=== PATIENT | male | born 1940 | race Caucasian/White ===

== ENCOUNTER 2018-04-03 09:17 | Day surgery (SDC) | payer MEDICARE, OTHER ==
[~2018-04-03 09:17] MED LIST: PROPOFOL INJ 200 MG/20 ML VIAL IV ONE
--- NOTE | 2018-04-03 10:04 | EKG REPORT ---
SEVERITY:- ABNORMAL ECG - SINUS RHYTHM RIGHT BUNDLE BRANCH BLOCK LEFT VENTRICULAR HYPERTROPHY INFERIOR INFARCT, OLD : Confirmed by: Emma Alfred MD 03-Apr-2018 10:04:15
[2018-04-03] MEDS ORDERED: PROPOFOL INJ 200 MG/20 ML VIAL IV ONE (10:16)
--- NOTE | 2018-04-03 10:50 | Operative Report ---
Operative Report DATE OF SURGERY: 04/03/18 Operative Report: The risks, benefits and alternatives of the procedure including the risk of bleeding, perforation requiring surgery are explained to the patient in detail and informed consent is obtained. Patient is brought back to the endoscopy suite and placed in the left, lateral decubital position. Timeout was called. Propofol medication is administered. Rectal examination is done which did not reveal any masses, tears or fissures. An Olympus videoscope was inserted to the patient's rectum. The scope was then carefully advanced all the way to the cecum. The cecum was identified by the usual anatomical landmarks including the ileocecal valve as well as the appendiceal office. Photodocumentation is obtained. The scope was then sequentially pulled back via the various segments of the colon including the ascending colon, hepatic flexure, transverse colon, splenic flexure, descending colon and finally in to the rectosigmoid portions of the colon. Retroflexion maneuvers performed. PREOPERATIVE DIAGNOSIS: Personal history of polyp POSTOPERATIVE DIAGNOSIS: Right-sided colon inflammation status post biopsy. Redundant colon. Diverticulosis. Internal hemorrhoids OPERATION: Colonoscopy with biopsy SURGEON: HUGH HEIN ANESTHESIA: LMAC TISSUE REMOVED OR ALTERED: As noted above. COMPLICATIONS: None. ESTIMATED BLOOD LOSS: None. INTRAOPERATIVE FINDINGS: As noted above. PROCEDURE: Patient tolerated the procedure well. No immediate postprocedure complications are noted. Patient discharged in good condition. Discharge date 04/03/2018. Discharge diet: Regular. Discharge activity: Regular. 2-3-week follow-up to discuss findings. Patient is instructed call the office or proceed to the emergency room should there be any further problems or questions. Wait on the pathology.
[2018-04-03 11:08] VITALS: BP 166/82
== END 2018-04-03 11:13 | disposition home or self-care (01) ==
LOC: END 09:17
PROVIDERS: ATTEND Internal Medicine Gastroenterology
DX: Z12.11 Encounter for screening for malignant neoplasm of colon (principal); K57.30 Diverticulosis of large intestine without perforation or abscess without bleeding; K64.8 Other hemorrhoids; K52.9 Noninfective gastroenteritis and colitis, unspecified; Z86.010 Personal history of colon polyps; E07.9 Disorder of thyroid, unspecified; E11.9 Type 2 diabetes mellitus without complications; I10 Essential (primary) hypertension; I25.10 Atherosclerotic heart disease of native coronary artery without angina pectoris; J44.9 Chronic obstructive pulmonary disease, unspecified; E11.40 Type 2 diabetes mellitus with diabetic neuropathy, unspecified; E78.00 Pure hypercholesterolemia, unspecified; Z86.73 Personal history of transient ischemic attack (TIA), and cerebral infarction without residual deficits; Z88.5 Allergy status to narcotic agent; I25.2 Old myocardial infarction; Z79.02 Long term (current) use of antithrombotics/antiplatelets; Z79.82 Long term (current) use of aspirin; Z79.84 Long term (current) use of oral hypoglycemic drugs; Z79.51 Long term (current) use of inhaled steroids; Z79.4 Long term (current) use of insulin
CPT/HCPCS: 45380; 82962; 88305 ×2; 93005; 93010; J2704; 811

== ENCOUNTER → 2020-05-29 | Outpatient (CLI) | payer MEDICARE, OTHER ==
--- NOTE | 2020-05-29 13:55 | RADIOLOGY REPORT (SQ) ---
EXAM DESCRIPTION: CAROTID DOPPLER IMAGES COMPLETED DATE/TIME: 05/29/2020 1:10 pm REASON FOR STUDY: DIZZINESS R42 DIZZINESS AND GIDDINESS S16.1XXA STRAIN OF MUSCLE, FASCIA AND TEND ON AT NECK LEVEL, COMPARISON: None. TECHNIQUE: Grayscale ultrasound, Doppler velocity and spectra, and color Doppler images acquired of the extra-cranial carotid and vertebral arteries. Images stored on PACS. LIMITATIONS: None. FINDINGS: RIGHT CAROTID CCA Velocities: Within normal limits. ICA Velocities Peak systolic 146 cm/s. End diastolic 28 cm/s. Proximal ICA/CCA peak systolic ratio 2.08. Plaque is present in the carotid bulb and proximal ICA. 50 to 69% stenosis of the ICA. LEFT CAROTID CCA Velocities: Within normal limits. ICA Velocities Peak systolic 142 cm/s. End diastolic 38 cm/s. Proximal ICA/CCA peak systolic ratio 0.94. Plaque is present in the carotid bulb and proximal ICA. Less than 50% stenosis. VERTEBRAL ARTERIES: Antegrade flow. Normal waveforms. SUBCLAVIAN ARTERIES: No finding. OTHER: No other significant finding. IMPRESSION: Atherosclerotic changes with 50 to 69% stenosis of the proximal right ICA. COMMENT: Quality ID #[id number]: Velocity criteria are extrapolated from the diameter data as defined by t he Society of Radiologists in Ultrasound Consensus Conference. Radiology 2003: 229; 340-346. TECHNICAL DOCUMENTATION: JOB ID: [id number] 2010 [employer]- All Rights Reserved Reading location - IP/workstation name: [email or web address]
== END ==
LOC: SP 11:01
PROVIDERS: ATTEND Physician Assistant
DX: I65.21 Occlusion and stenosis of right carotid artery (principal); R42 Dizziness and giddiness
CPT/HCPCS: 93880